=== PATIENT | male | born 1985 | race Caucasian/White ===

== ENCOUNTER → 2017-10-05 | Outpatient (CLI) | payer BC | LOC: GMAB 14:39 | PROVIDERS: ATTEND Family Medicine | DX: R94.5 Abnormal results of liver function studies (principal) ==

== ENCOUNTER → 2020-05-25 | Outpatient (CLI) | payer SELFPAY ==
--- NOTE | 2020-05-26 06:31 | CT ---
CLINICAL HISTORY: LOCALIZED SWELLING, MASS AND LUMP NECK RIGHT COMPARISON: None. TECHNIQUE: CT NECK WITH IV CONTRAST on 05/25/2020 12:00 AM CDT This exam was performed according to our departmental dose-optimization program, which includes automated exposure control, adjustment of the mA and/or kV according to patient size and/or use of iterative reconstruction technique. FINDINGS: The visualized portions of the brain and orbits are normal. The oral cavity, oropharynx and nasopharynx are normal. The parapharyngeal fat planes are preserved. The hypopharynx is unremarkable. The parotid and submandibular glands are grossly within normal limits. No intrinsic mass lesions are seen. . The paranasal sinuses and mastoid air cells are clear. No definite pathologically enlarged lymph nodes are identified. The thyroid gland is normal in size and configuration. There is small amount of soft tissue swelling involving the right anterior lower neck subcutaneous fat. There is slight asymmetry with enlargement of the right sternocleidomastoid muscle. The thoracic inlet is normal. The superior mediastinum and lung apices are normal. No acute osseous abnormalities are identified. IMPRESSION: Mild anterior lower right neck edema without focal mass. Slightly asymmetric enlargement of the right sternocleidomastoid muscle. Underlying intramuscular hematoma is not excluded. Electronically signed by: Jose G Carson MD 05/26/2020 6:29 AM CDT
== END ==
LOC: CT 16:40
PROVIDERS: ATTEND Nurse Practitioner
DX: M62.89 Other specified disorders of muscle (principal); R60.0 Localized edema

== ENCOUNTER → 2020-05-25 | Outpatient (CLI) | payer SELFPAY ==
--- NOTE | 2020-05-25 16:02 | US ---
EXAM DESCRIPTION: Soft Tissue,Head/Neck CLINICAL HISTORY: 35 years Male, MASS OF NECK COMPARISON: None. TECHNIQUE: Real-time sonographic images of the right neck are obtained to evaluate palpable abnormality. FINDINGS: In the area of palpable abnormality is a ill-defined heterogeneous echogenicity structure measuring 4.4 x 1.2 x 3.5 cm without significant vascular flow in the neck muscle. IMPRESSION: Possible soft tissue swelling versus lipoma or other soft tissue mass involving right neck strap muscle is not well characterized on ultrasound. Recommend further evaluation with postcontrast CT of the neck soft tissues for better evaluation. Electronically signed by: Mario Curran MD 05/25/2020 4:01 PM CDT
== END ==
LOC: US 09:18
PROVIDERS: ATTEND Nurse Practitioner
DX: R22.1 Localized swelling, mass and lump, neck (principal)

== ENCOUNTER 2020-05-26 04:46 | Emergency (ER) | payer BC, SELFPAY ==
--- NOTE | 2020-05-26 05:55 | ED.PDOC ---
History of Present Illness - General Chief Complaint: ENT Problem Stated Complaint: right side of my neck swelling Time Seen by Provider: 05/26/20 05:01 Source: patient, family Exam Limitations: no limitations Additional Information: PATIENT HAD AN ACUTE FEBRILE VIRAL URI ILLNESS 1 WEEK AGO ASSOCIATED WITH FEVER, AND MULTIPLE [employer]-WORKERS TESTED POSITIVE FOR RHINOVIRUS. PT HIMSELF DID NOT TEST.URI SYMPTOMS CONSISTED OF SORE THROAT, RHINORRHEA, PT NOW WITH SEVERAL DAY HISTORY OF SWELLING, PAIN AND TIGHTNESS IN RIGHT STERNOCLEIDOMASTOID MUSCLE AREA. HAD CT PERFORMED YESTERDAY, BUT NO RESULTS YET. STATES HE IS NOW FEELING "SCRATCHY" THROAT AND WAS CONCERNED. DENIES ANY DIFFICULTY SWALLOWING. - History of Present Illness Allergies/Adverse Reactions: Allergies NO KNOWN ALLERGY Allergy (Unverified 04/17/14 21:55) Home Medications: Ambulatory Orders Cyclobenzaprine HCl [Flexeril] 10 mg PO TID PRN #15 tab 05/26/20 Losartan Potassium 50 mg PO DAILY 05/26/20 predniSONE 20 mg PO DAILY 5 Days #5 tab 05/26/20 Review of Systems - Review of Systems Constitutional: States: no symptoms reported EENTM: States: see HPI Respiratory: States: no symptoms reported Cardiology: States: no symptoms reported Gastrointestinal/Abdominal: States: no symptoms reported Past Medical History (General) - Patient Medical History Hx Seizures: No Hx Stroke: No Hx Dementia: No Hx Asthma: No Hx of COPD: No Hx Cardiac Disorders: No Hx Congestive Heart Failure: No Hx Pacemaker: No Hx Hypertension: Yes Hx Thyroid Disease: No Hx Diabetes: No Hx Gastroesophageal Reflux: No Hx Renal Disease: No Hx Cancer: No Hx of HIV: No Hx Hepatitis C: No Hx MRSA: No Surgical History: no surgical history - Vaccination History Hx Tetanus, Diphtheria Vaccination: No Hx Influenza Vaccination: No Hx Pneumococcal Vaccination: No Immunizations Up to Date: No - Social History Hx Tobacco Use: No Hx Alcohol Use: Yes Hx Substance Use: No Hx Substance Use Treatment: No Hx Depression: No Hx Physical Abuse: No Hx Emotional Abuse: No Hx Suspected Abuse: No Family Medical History - Family History Father Family History: Unknown Physical Exam - Physical Exam General Appearance: Agitated, Alert, Well Developed, Well Groomed, Well Hydrated, Well Nourished Nasal Exam: normal inspection Throat Exam: normal mouth inspection, pharynx normal Neck: non-tender Cardiovascular/Respiratory: regular rate, rhythm, no M/R/G, normal peripheral pulses, no JVD, normal breath sounds, no respiratory distress Departure - Departure Clinical Impression: Viral myositis Disposition: Discharge to Home or Self Care Condition: Fair Departure Forms: ED Discharge - Pt. Copy, Patient Portal Self Enrollment Instructions: DI for Ear Pain-Adult, Muscle and Bone Pain (DC) Referrals: Steven Santos MD [Primary Care Provider] - 1-2 Weeks Prescriptions: Cyclobenzaprine HCl [Flexeril] 10 mg PO TID PRN #15 tab PRN Reason: Muscle Spasms predniSONE 20 mg PO DAILY 5 Days #5 tab Home Medications: Ambulatory Orders Cyclobenzaprine HCl [Flexeril] 10 mg PO TID PRN #15 tab 05/26/20 Losartan Potassium 50 mg PO DAILY 05/26/20 predniSONE 20 mg PO DAILY 5 Days #5 tab 05/26/20
[2020-05-26 06:49] VITALS: BP 115/84; TEMP 97.9; O2SAT 98
== END 2020-05-26 06:51 | disposition home or self-care (01) ==
LOC: ER 04:46
DX: M60.80 Other myositis, unspecified site (principal); I10 Essential (primary) hypertension

== ENCOUNTER → 2020-05-29 | Outpatient (CLI) | payer BC | LOC: YCFC.O 12:22 | PROVIDERS: ATTEND Family Medicine | DX: R22.1 Localized swelling, mass and lump, neck (principal) ==